=== PATIENT | female | born 1985 | race Caucasian/White ===

== ENCOUNTER 2016-05-05 19:20 | Emergency (ER) | payer MEDICAID ==
[2016-05-05 22:53] VITALS: BP 129/75
[2016-05-05] MEDS ORDERED: Ketorolac 60 MG/2 ML SDV IM ONE (22:53)
--- NOTE | 2016-05-05 23:26 | EDM.PDOC ---
ED HPI ENT - General Chief Complaint: ENT Problem Stated Complaint: INFECTED TOOTH Time Seen by Provider: 05/05/16 23:26 Source: Reports: Patient History Limitations: Reports: No limitations - History of Present Illness INITIAL COMMENTS - FREE TEXT/NARRATIVE: pT ARRIVED WITH PAIN IN THE LEFT LOWER MOLAR AREA. sHE HAS INCREASED PAIN TODAY. sHE HAS NOT SEEN A DENTIST RECENTLY. Timing/Duration: Reports: Day(s):, Getting worse Severity: moderate Location: Reports: mouth Quality: Reports: Sharp, Stabbing Associated symptoms: Reports: denies other symptoms - Related Data Allergies/ADRs: Allergies Allergy/AdvReac Type Severity Reaction Status Date / Time acetaminophen [From Tylenol] Allergy Anaphylactic Verified 05/05/16 23:07 Shock kiwi Allergy Anaphylactic Verified 05/05/16 23:07 Shock Home Meds: Home Meds Levothyroxine [Synthroid] 75 mcg PO DAILY 04/29/13 [History] Past Medical History HEENT History: Reports: Other (see below) Other HEENT History: carries Gastrointestinal History: Reports: Colon polyp, Inflammatory bowel disease 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: Musculoskeletal History: Reports: Other (see below) Other Musculoskeletal History: L knee pain Endocrine/Metabolic History: Reports: Hypothyroidism Other Endocrine/Metabolic History: hypoglycemia - Past Surgical History GI Surgical History: Reports: Cholecystectomy, Colonoscopy, EGD Endocrine Surgical History: Reports: None Musculoskeletal Surgical History: Reports: None Social & Family History - Tobacco Use Smoking Status *Q: Never Smoker Years of Tobacco use: 12 Packs/Tins Daily: 0.2 Used Tobacco, but Quit: No Second Hand Smoke Exposure: No - Caffeine Use Caffeine Use: Reports: Coffee - Alcohol Use Days Per Week of Alcohol Use: 0 - Recreational Drug Use Recreational Drug Use: Yes ED ROS ENT - Review of Systems Review Of Systems: See Below Constitutional: Reports: no symptoms HEENT: Reports: Dental pain Respiratory: Reports: no symptoms Cardiovascular: Reports: No symptoms Endocrine: Reports: no symptoms GI/Abdominal: Reports: No symptoms : Reports: no symptoms Musculoskeletal: Reports: no symptoms Skin: Reports: no symptoms ED EXAM, ENT - Physical Exam Exam: See Below Text/Narrative:: PT ARRIVED WITH DENTAL PAIN IN THE LEFT LOWER MOLAR AREA. Exam Limited By: No limitations General Appearance: alert, mild distress Ears: normal TMs Nose: normal inspection Mouth/Throat: Dental pain Head: atraumatic Neck: lymphadenopathy (L) Respiratory/Chest: no respiratory distress Cardiovascular: regular rate, rhythm GI/Abdominal: soft, non tender Psychiatric: anxious Course - Vital Signs Last Recorded V/S: Last Vital Signs Temp 36.6 C 05/05/16 23:08 Pulse 67 05/05/16 23:08 Resp 18 05/05/16 23:08 BP 129/75 05/05/16 23:08 Pulse Ox 98 05/05/16 23:08 - Orders/Labs/Meds Meds: Medications Discontinued Medications Generic Name Dose Route Start Last Admin Trade Name Freq PRN Reason Stop Dose Admin Ketorolac Tromethamine 60 mg 05/05/16 22:53 05/05/16 23:20 Toradol IM 05/05/16 22:54 60 mg ONETIME ONE Administration - Re-Assessments/Exams Free Text/Narrative Re-Assessment/Exam: 05/05/16 23:30 PT WAS GIVEN TORODOL 60MG IM. Departure - Departure Time of Disposition: 23:23 Disposition: Home, Self-Care 01 Condition: fair Clinical Impression: Infected tooth Referrals: Pieter Wall PA-C [Primary Care Provider] - Forms: ED Department Discharge Care Plan Goals: AMOXICILLIN 500MG TID, TORODOL 10MG Q6H PRN FOR PAIN, APPT WITH [facility] FOR FRIDAY.
== END 2016-05-05 23:52 | disposition home or self-care (01) ==
LOC: JP.ED 19:20
DX: K04.7 Periapical abscess without sinus (principal); Z88.8 Allergy status to other drugs, medicaments and biological substances; Z98.890 Other specified postprocedural states
CPT/HCPCS: 96372; 99283; J1885

== ENCOUNTER 2017-09-06 23:20 | Emergency (ER) | payer MEDICAID ==
[2017-09-06 23:38] VITALS: BP 142/90
[2017-09-06] MEDS ORDERED: methylPREDNISolone Sodium Succinate 125 MG/2 ML SDV IM ONE (23:53)
[2017-09-06] MEDS ORDERED: oxyCODONE 5 MG Tab PO ONE (23:54)
--- NOTE | 2017-09-06 23:57 | EDM.PDOC ---
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 Tonight she is having significant discomfort with pain radiating up the right arm into the shoulder. No fevers or chills, no specific trauma. Onset: Gradual (Symptoms of been chronic, much worse over the last 24 hours) Location: Reports: Upper Extremity, Left, Upper Extremity, Right Quality: Reports: Burning, Stabbing Severity: Moderate Worsens with: Reports: Movement Associated Symptoms: Reports: No Other Symptoms bilateral wrist/hand Pain Score (Numeric/FACES): 7 - Related Data Allergies Allergy/AdvReac Type Severity Reaction Status Date / Time acetaminophen [From Tylenol] Allergy Anaphylactic Verified 09/06/17 23:36 Shock kiwi Allergy Anaphylactic Verified 09/06/17 23:36 Shock Home Meds: Home Meds Levothyroxine [Synthroid] 75 mcg PO DAILY 04/29/13 [History] Past Medical History HEENT History: Reports: Impaired Vision Other HEENT History: carries Respiratory History: Reports: Asthma Gastrointestinal History: Reports: Colon Polyp, Inflammatory Bowel Disease 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: Musculoskeletal History: Reports: Fracture, Other (See Below) Other Musculoskeletal History: bilateral carpal tunnel Neurological History: Reports: Other (See Below) Other Neuro History: idiopathic cerebral hypertension Endocrine/Metabolic History: Reports: Hypothyroidism Other Endocrine/Metabolic History: hypoglycemia - Past Surgical History GI Surgical History: Reports: Cholecystectomy Female Surgical History: Reports: Other (See Below) Other Female Surgeries/Procedures: essure coils bilateral fallopian tubes Musculoskeletal Surgical History: Reports: Other (See Below) Other Musculoskeletal Surgeries/Procedures:: ankle surgery due to torn ligament Social & Family History - Tobacco Use Smoking Status *Q: Never Smoker - Caffeine Use Caffeine Use: Reports: Coffee - Recreational Drug Use Recreational Drug Use: No Review of Systems - Review of Systems Review Of Systems: See Below Constitutional: Denies: Fever Respiratory: Denies: Shortness of Breath Cardiovascular: Denies: Chest Pain GI/Abdominal: Denies: Abdominal Pain Skin: Denies: Bruising Neurological: Reports: Paresthesia (Some tingling in both hands across the median nerve distribution) ED EXAM, GENERAL - Physical Exam Exam: See Below Exam Limited By: No Limitations General Appearance: Alert, No Apparent Distress Respiratory/Chest: No Respiratory Distress Cardiovascular: Normal Peripheral Pulses (In the wrists) Extremities: Other (She has good equal bilateral grasp strength. Some discomfort with percussion of the wrist on the flexor surface.) Skin Exam: Warm, Dry Course - Vital Signs Last Recorded V/S: Last Vital Signs Temp 98.6 F 09/06/17 23:46 Pulse 87 09/06/17 23:46 Resp 17 09/06/17 23:46 BP 142/90 H 09/06/17 23:46 Pulse Ox 96 09/06/17 23:46 - Orders/Labs/Meds Orders: Active Orders 24 hr Category Date Time Status DME for Discharge [COMM] Stat Oth 09/06/17 23:53 Ordered Meds: Medications Discontinued Medications Generic Name Dose Route Start Last Admin Trade Name Michael PRN Reason Stop Dose Admin Methylprednisolone Sodium Succinate 125 mg 09/06/17 23:53 09/07/17 00:46 Solu-Medrol IM 09/06/17 23:54 125 mg ONETIME ONE Administration Oxycodone HCl 5 mg 09/06/17 23:54 09/07/17 00:45 Oxycodone PO 09/06/17 23:55 5 mg ONETIME ONE Administration - Re-Assessments/Exams Free Text/Narrative Re-Assessment/Exam: 09/06/17 23:56 Patient was supplied with new wrist splints. She was given 125 mg of IM Solu- Medrol, and 1 oral oxycodone to take when she gets home. She needs to wear the splints on a consistent basis and recheck next week with her primary providers. Departure - Departure Time of Disposition: 01:00 Disposition: Home, Self-Care 01 Condition: Good Clinical Impression: Carpal tunnel syndrome Qualifiers: Laterality: bilateral Qualified Code(s): G56.03 - Carpal tunnel syndrome, bilateral upper limbs - Discharge Information Instructions: Carpal Tunnel Syndrome, [id number] Referrals: PCP,None [Primary Care Provider] - Forms: ED Department Discharge Care Plan Goals: Where splints especially at night, and recheck with your primary care next week if not improving satisfactorily. - My Orders Last 24 Hours: My Active Orders 09/06/17 23:53 DME for Discharge [COMM] Stat - Assessment/Plan Last 24 Hours: My Active Orders 09/06/17 23:53 DME for Discharge [COMM] Stat
== END 2017-09-07 00:56 | disposition home or self-care (01) ==
LOC: JP.ED 23:20
DX: G56.03 Carpal tunnel syndrome, bilateral upper limbs (principal); E03.9 Hypothyroidism, unspecified; Z88.6 Allergy status to analgesic agent; Z91.018 Allergy to other foods; Z79.899 Other long term (current) drug therapy
CPT/HCPCS: 96372; 99283; A9270; J2930

== ENCOUNTER 2018-10-29 09:45 | Emergency (ER) | payer MEDICAID ==
[2018-10-29 09:58] VITALS: BP 138/89
[2018-10-29] MEDS ORDERED: Ketorolac 60 MG/2 ML SDV IM ONE (10:08)
--- NOTE | 2018-10-29 10:14 | EDM.PDOC ---
ED HPI GENERAL MEDICAL PROBLEM - General Chief Complaint: Back Pain or Injury Stated Complaint: SEVERE LOWER BACK PAIN Time Seen by Provider: 10/29/18 09:55 Source of Information: Reports: Patient, Old Records, RN History Limitations: Reports: No Limitations - History of Present Illness INITIAL COMMENTS - FREE TEXT/NARRATIVE: 33 yo female here with low back pain since early last evening when she rolled over in bed and it started. She took ibuprofen at the time, but nothing since. Has some pain down her L leg posteriorly. No hx of the same. No recent heavy lifting. No bowel or bladder incontinence. Has not been to her primary. Is not missing work. Coughing makes her pain worse. 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 Back Pain Score (Numeric/FACES): 9 - Related Data Allergies Allergy/AdvReac Type Severity Reaction Status Date / Time acetaminophen [From Tylenol] Allergy Severe Anaphylactic Verified 09/08/17 09:32 Shock kiwi Allergy Severe Anaphylactic Verified 09/08/17 09:32 Shock Home Meds: Home Meds Levothyroxine [Synthroid] 75 mcg PO DAILY 04/29/13 [History] Past Medical History HEENT History: Reports: Impaired Vision Other HEENT History: carries Respiratory History: Reports: Asthma Gastrointestinal History: Reports: Colon Polyp, Inflammatory Bowel Disease 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: Musculoskeletal History: Reports: Fracture, Other (See Below) Other Musculoskeletal History: bilateral carpal tunnel Neurological History: Reports: Other (See Below) Other Neuro History: idiopathic cerebral hypertension Endocrine/Metabolic History: Reports: Hypothyroidism Other Endocrine/Metabolic History: hypoglycemia - Infectious Disease History Infectious Disease History: Reports: Chicken Pox - Past Surgical History GI Surgical History: Reports: Cholecystectomy Female Surgical History: Reports: Other (See Below) Other Female Surgeries/Procedures: essure coils bilateral fallopian tubes Musculoskeletal Surgical History: Reports: Other (See Below) Other Musculoskeletal Surgeries/Procedures:: ankle surgery due to torn ligament Social & Family History - Tobacco Use Smoking Status *Q: Never Smoker - Caffeine Use Caffeine Use: Reports: Coffee, Soda, Tea - Recreational Drug Use Recreational Drug Use: No ED ROS GENERAL - Review of Systems Review Of Systems: See Below Constitutional: Reports: No Symptoms HEENT: Reports: No Symptoms Respiratory: Reports: No Symptoms Cardiovascular: Reports: No Symptoms GI/Abdominal: Reports: No Symptoms : Reports: No Symptoms Musculoskeletal: Reports: Back Pain Skin: Reports: No Symptoms Neurological: Reports: No Symptoms ED EXAM,LOWER BACK PAIN/INJURY - Physical Exam Exam: See Below Exam Limited By: No Limitations General Appearance: Alert, WD/WN, No Apparent Distress, Obese Eye Exam: Bilateral Eye: Normal Inspection Respiratory/Chest: No Respiratory Distress, Lungs Clear, Normal Breath Sounds, No Accessory Muscle Use Cardiovascular: Regular Rate, Rhythm, No Edema Back Exam: Normal Inspection, Decreased Range of Motion (due to pain), Muscle Spasm (lumbar bilaterally.), Paraspinal Tenderness (lumbar bilat.). No: CVA Tenderness (R), CVA Tenderness (L), Vertebral Tenderness Extremities: Normal Inspection, Normal Range of Motion, Non-Tender, No Pedal Edema Neurological: Alert, Normal Mood/Affect, Normal Dorsiflexion, CN II-XII Intact, Normal Plantar Flexion, Normal Reflexes, No Motor/Sensory Deficits, Oriented x 3 , Other (Straight leg raising negative) Psychiatric: Normal Affect, Normal Mood Skin Exam: Warm, Dry, Intact, Normal Color, No Rash Course - Vital Signs Last Recorded V/S: Last Vital Signs Temp 36.1 C 10/29/18 09:57 Pulse 69 10/29/18 09:57 Resp 16 10/29/18 09:57 BP 138/89 10/29/18 09:57 Pulse Ox 95 10/29/18 09:57 - Orders/Labs/Meds Orders: Active Orders 24 hr Category Date Time Status Ketorolac [Toradol] Med 10/29/18 10:08 Once 60 mg IM ONETIME ONE Departure - Departure Time of Disposition: 10:20 Disposition: Home, Self-Care 01 Condition: Fair Clinical Impression: Low back pain Qualifiers: Chronicity: acute Back pain laterality: left Sciatica presence: unspecified whether sciatica present Qualified Code(s): M54.5 - Low back pain - Discharge Information *PRESCRIPTION DRUG MONITORING PROGRAM REVIEWED*: No *COPY OF PRESCRIPTION DRUG MONITORING REPORT IN PATIENT JAYLEEN: No Instructions: Acute Back Pain, Adult Referrals: Kendra Hdz, RN [Primary Care Provider] - Additional Instructions: Take ibuprofen 600 mg every 6 hrs with food starting after 4pm today. Take Flexeril 10 mg every 6-8 hrs as needed. Avoid lifting, bending or twisting. F/U with your provider later this week for recheck. Massage may give some added relief. - My Orders Last 24 Hours: My Active Orders 10/29/18 10:08 Ketorolac [Toradol] 60 mg IM ONETIME ONE - Assessment/Plan Last 24 Hours: My Active Orders 10/29/18 10:08 Ketorolac [Toradol] 60 mg IM ONETIME ONE
== END 2018-10-29 10:31 | disposition home or self-care (01) ==
LOC: JP.ED 09:45
DX: M54.5 Low back pain (principal); E03.9 Hypothyroidism, unspecified; Z88.6 Allergy status to analgesic agent; Z91.018 Allergy to other foods; Z79.899 Other long term (current) drug therapy
CPT/HCPCS: 96372; 99283; J1885

== ENCOUNTER 2019-04-20 08:51 | Day surgery (SDC) | payer MEDICAID ==
[~2019-04-20 08:51] MED LIST: Midazolam 1 MG/ML 2 ML SDV ONE; Propofol 200 MG/20 ML SDV ONE; fentaNYL 100 MCG/2 ML SDV ONE
[2019-04-20] MEDS ORDERED: Dextrose 5%-Lactated Ringers 1,000 ML IV SCH (09:15)
[2019-04-20] MEDS ORDERED: Propofol 200 MG/20 ML SDV ONE (10:23)
[2019-04-20 11:37] VITALS: BP 112/75; PULSE 69
--- NOTE | 2019-05-03 14:54 | OR ---
DATE OF PROCEDURE: 04/20/2019 SURGEON: Bay Monge MD PREOPERATIVE DIAGNOSIS: History of colon polyps. POSTOPERATIVE DIAGNOSIS: Normal colonoscopic examination. OPERATIVE PROCEDURE: Flexible colonoscopy. ANESTHESIA: IV sedation. INDICATIONS FOR PROCEDURE: This is a 34-year-old female presenting with a history of a tubular adenoma being excised at the age of 25. Given this, she is on a fairly short-term colonoscopy followup schedule. Plan is to proceed with a colonoscopy with biopsies and/or polypectomy as indicated. Potential risks of the procedure including bleeding and perforation were discussed, and the patient wishes to proceed. DETAILS OF PROCEDURE: The patient was taken to the operative room and placed in a left lateral decubitus position. IV sedation was administered, after which the initial digital rectal exam was performed and was unremarkable. The colonoscope was then passed into the rectum with retroflexion revealing uncomplicated hemorrhoidal columns. The scope was eventually passed to the cecum. The prep in this case was fairly good. To that level, there were no areas of colitis and no areas of diverticular disease. Additionally, there were no polyps or other signs of neoplasia. The scope was then withdrawn, the above reconfirmed, and the patient taken to the recovery room in satisfactory condition. Given the patient had a tubular adenoma diagnosed at age 25, that would imply a genetic predisposition to forming colon polyps and would recommend a relatively short interval between colonoscopies, and I would recommend the next one be roughly 3 years from now. Bay Monge MD /[id number]
== END 2019-04-20 11:45 | disposition home or self-care (01) ==
LOC: JP.SDS 08:51
PROVIDERS: ATTEND Surgery
DX: Z12.11 Encounter for screening for malignant neoplasm of colon (principal); K64.9 Unspecified hemorrhoids; Z86.010 Personal history of colon polyps
CPT/HCPCS: 45378; 81025; J2250; J2704; J3010; J7121

== ENCOUNTER 2022-04-08 13:11 | Emergency (ER) | payer MEDICAID ==
[2022-04-08 13:51] VITALS: BP 115/76; PULSE 57
== END 2022-04-08 14:14 | disposition home or self-care (01) ==
LOC: JP.ED 13:11
DX: J31.0 Chronic rhinitis (principal); I10 Essential (primary) hypertension; J45.909 Unspecified asthma, uncomplicated; E03.9 Hypothyroidism, unspecified; E66.9 Obesity, unspecified; Z68.38 Body mass index [BMI] 38.0-38.9, adult; Z91.018 Allergy to other foods; Z88.8 Allergy status to other drugs, medicaments and biological substances; Z79.899 Other long term (current) drug therapy
CPT/HCPCS: 99282

== ENCOUNTER 2022-04-22 09:13 | Day surgery (SDC) | payer MEDICAID ==
[2022-04-22] MEDS ORDERED: Dextrose 5%-Lactated Ringers 1,000 ML IV SCH (09:30)
[2022-04-22] MEDS ORDERED: Midazolam 1 MG/ML 2 ML SDV ONE (10:49)
[2022-04-22] MEDS ORDERED: fentaNYL 100 MCG/2 ML SDV ONE (10:49)
[2022-04-22] MEDS ORDERED: Propofol 200 MG/20 ML SDV ONE ×2 (10:49→11:42)
[2022-04-22 13:31] VITALS: BP 123/83; PULSE 64
== END 2022-04-22 13:55 | disposition home or self-care (01) ==
LOC: JP.SDS 09:13
PROVIDERS: ATTEND Surgery
DX: K21.9 Gastro-esophageal reflux disease without esophagitis (principal); K44.9 Diaphragmatic hernia without obstruction or gangrene; Z12.11 Encounter for screening for malignant neoplasm of colon; K29.70 Gastritis, unspecified, without bleeding; J04.0 Acute laryngitis; K64.9 Unspecified hemorrhoids; Z86.010 Personal history of colon polyps
CPT/HCPCS: 81025; 87081; 88305; J2250; J2704; J3010; J7121

== ENCOUNTER 2023-04-20 01:01 | Emergency (ER) | payer MEDICAID ==
[2023-04-20 01:15] VITALS: BP 127/81; PULSE 73
[2023-04-20 01:23] LABS: BASOPHILS ABSOLUTE AUTO 0.07 K/uL (0.00-0.10); BASOPHILS PERCENT AUTO 0.7 % (0.1-1.3); EOSINOPHILS ABSOLUTE AUTO 0.71 K/uL (0.00-0.40); EOSINOPHILS PERCENT AUTO 7.6 % (0.0-5.4); HEMATOCRIT 40.8 % (34.3-46.0); HEMOGLOBIN 14.3 g/dL (11.2-15.5); IMMATURE GRAN ABSOLUTE AUTO 0.04 K/uL (0.00-0.23); IMMATURE GRAN PERCENT AUTO 0.4 % (0.0-0.7); LYMPHOCYTES ABSOLUTE AUTO 2.93 K/uL (0.8-3.3); LYMPHOCYTES PERCENT AUTO 31.3 % (11.4-47.7); MEAN CORPUSCULAR HEMOGLOBIN 30.5 pg (31.6-35.5); MONOCYTES PERCENT AUTO 8.5 % (3.3-12.6); NEUTROPHILS ABSOLUTE AUTO 4.81 K/uL (1.0-7.6); NEUTROPHILS PERCENT AUTO 51.5 % (40.0-78.1); PLATELET COUNT,PLT 291 K/uL (130-375); RED BLOOD CELL COUNT 4.69 M/uL (3.77-5.24); WHITE BLOOD CELL COUNT,WBC 9.4 K/uL (3.2-11.0)
[2023-04-20 01:36] LABS: CALCIUM 8.5 mg/dL (8.5-10.1); CREATININE 1.1 mg/dL (0.6-1.0); EST CRCL DRUG DOSING (CG) 66.19 mL/min; POTASSIUM,K 3.5 mmol/L (3.6-5.2); TROPONIN I HIGH SENSITIVITY 11.3 pg/mL (<=60.3)
[2023-04-20 01:37] LABS: ANION GAP 15.5 mmol/L (5.0-14.0)
== END 2023-04-20 02:17 | disposition home or self-care (01) ==
LOC: JP.ED 01:01
DX: R07.89 Other chest pain (principal); I10 Essential (primary) hypertension; E03.9 Hypothyroidism, unspecified; J45.909 Unspecified asthma, uncomplicated; Z68.38 Body mass index [BMI] 38.0-38.9, adult; E66.9 Obesity, unspecified; Z91.018 Allergy to other foods; Z91.041 Radiographic dye allergy status; Z91.048 Other nonmedicinal substance allergy status; Z88.6 Allergy status to analgesic agent; Z79.899 Other long term (current) drug therapy
CPT/HCPCS: 36415; 71045; 71045-26; 80048; 84484; 85025; 93005; 99285